=== PATIENT | female | born 1980 | race Caucasian/White ===

== ENCOUNTER 2023-04-27 12:59 | Emergency (ER) | payer SELFPAY ==
[2023-04-27] VITALS (8 sets, daily range): BP systolic 101–133; BP diastolic 60–85; PULSE 120–130; RESP 17–94; TEMP 38.3–39.6; O2SAT 16–99; BMI 26.5
--- NOTE | 2023-04-27 13:14 | ED_ITS ---
Documented by User: SUMAYA Samuel 04/27/23 16:32 HPI - Abdominal Pain General: Chief Complaint: Abdominal Pain Stated Complaint: Abd Pain Time Seen by Provider: 04/27/23 13:07 Source: patient Mode of arrival: ambulatory Limitations: no limitations History of Present Illness: Patient is a nice 42-year-old female presents to ED today with a complaint of significant abdominal pain and fevers. Patient states on Wednesday night she drank alcohol and states on Wednesday she woke up with nausea, vomiting, diarrhea. She thought it was secondary to alcohol effects. She states since that time abdominal pain has started affecting mainly her right lower quadrant and has been persistent. Starting this morning she states pain is severe. She began running fevers yesterday. She is febrile upon arrival at 103.2. She is complaining of abdominal pain that is worse when trying to urinate. She is not having flank pain. Previous abdominal surgeries include a hysterectomy and u nilateral oophorectomy as well as an abdominoplasty. MD elicited complaint: abdominal pain Pertinent past history: none Onset (ago): day(s) Pain Consistency: constant Location: RLQ Severity: severe Quality: stabbing and sharp Radiation: none Migration to: no migration Exacerbating factors: nothing Relieving factors: nothing Associated Symptoms: Reports chills, diarrhea, dysuria, fever(s), nausea and vomiting; Denies hematochezia, hematemesis and melena Related Data: Patient : No Review of Systems Const: Reports: fever(s), chills and body aches; Denies: fatigue or malaise Card: Denies: chest pain Resp: Denies: dyspnea GI: Reports: abdominal pain, nausea, vomiting and diarrhea; Denies: hematemesis, hematochezia or melena : Reports: difficulty voiding and dysuria; Denies: flank pain, urinary urgency, urinary hesitancy, dribbling, vaginal odor, vaginal bleeding, vaginal discharge or pelvic pain Musc: Denies: neck pain, back pain, extremity pain or joint pain Skin/Breast: Denies: rash Neuro: Reports: headache(s); Denies: numbness in extremities, weakness in extremities, sensory changes, difficulty walking or dizziness Physical Exam Const: COMMON NORMALS: average body habitus, patient oriented x3, no limitations, healthy appearing, alert and well nourished GENERAL APPEARANCE: cooperative and ill appearing ORIENTATION/CONSCIOUSNESS: Yes awake, Yes oriented to person, Yes oriented to place and Yes oriented to time Eye: COMMON NORMALS: no scleral icterus Neck/C-Spine: COMMON NORMALS: full ROM, no lymphadenopathy and no meningeal signs Chest: COMMONS NORMALS: normal inspection of the chest and normal palpation of entire chest wall Resp: COMMON NORMALS: normal respiratory effort and clear to auscultation bilaterally AUSCULTATION: clear to auscultation bilaterally Cardio: COMMON NORMALS: regular rhythm RATE: tachycardic RHYTHM: regular rhythm GI: COMMON NORMALS: Normal to inspection, nondistended, normoactive bowel sounds present, Soft to palpation, No hepatosplenomegaly present and no masses INSPECTION: Yes normal to inspection AUSCULTATION: Yes normoactive bowel sounds PALPATION: Yes Soft to palpation, Yes Tenderness to palpation present (GI) Details: RLQ, Yes Guarding due to palpation present (GI), No Rigid due to palpation and Yes No hepatosplenomegaly present : COMMON NORMALS: Yes no CVA tenderness BLADDER/KIDNEY EXAM: Yes no CVA tenderness Back/Pelvis: COMMON NORMALS: no CVA tenderness, thoracic and lumbar spine normal to inspection, no thoracic nor lumbar tenderness and thoraco-lumbar ROM normal Extremity: COMMON NORMALS: normal to inspection GENERAL: Yes normal exam except as noted Neuro: EFRAIN COMA SCALE: document GCS findings Efrain coma scale eye open ing: Spontaneous [place] coma scale verbal response: Orientated Efrain coma scale motor response: Obey commands Efrain coma scale total score: 15 COMMON NORMALS: patient oriented x3 SENSORIUM/ORIENTATION: Yes alert, Yes oriented to person, Yes oriented to place and Yes oriented to time MENINGEAL SIGNS: Yes no meningeal signs Skin: COMMON NORMALS: no rashes or lesions noted GENERAL SKIN EXAM: no rashes or lesions noted Course Vital Signs: Vital signs: Vital Signs Temperature 100.9 F H 04/27/23 15:30 Pulse Rate 124 H 04/27/23 16:52 Respiratory Rate 17 04/27/23 16:52 Blood Pressure 105/61 04/27/23 16:52 Pulse Oximetry 94 04/27/23 16:52 Oxygen Delivery Me thod Room Air 04/27/23 15:30 MDM - Abdominal Pain Medical Decision Making Patient is a 42-year-old female presents to ED today with nausea, vomiting, diarrhea that initially began on Wednesday however these have seemed to improve but now she is complaining of persistent severe right lower quadrant abdominal pain. She feels like pain seems to be worse with urination. She arrives tachycardic and febrile at 103.2. Temperature did improve with antipyretics. Blood work shows a normal white count. She has a normal lactate. Remainder of blood work is unremarkable. Her UA is clear. CT scan showing no acute abdominal or pelvic abnormalities. Dr. Pina commented on a small amount of free fluid in the pelv is that is physiologic but could be related to a ruptured ovarian cyst. I attempted to contact her but she had already left for the day so I spoke to Dr. Hackett who also looked patient CT scan. He also did not find any significant abnormalities. She is status post hysterectomy and right oophorectomy. He agreed that the small amount of free fluid is most likely physiologic probably not an explanation for her pain. He commented on some very mild colitis surrounding her ileocecal region said this was probably too mild to even comment on. Patient and family seems frustrated that I am not able to provide them an explanation for her discomfort. I was able to convince her to get a respiratory panel to possibly explain the fevers. Did initially get CXR which was normal. I will also add blood cultures. Offered admission/observation into the hospital due to pain but patient states she would like to go home. Return ED precautions given. Case discussed with Dr. Leon who agrees with work-up and plan. Lab Data 04/27/23 11:56 04/27/23 11:56 Labs/Radiology: Radiology Impressions Chest X-Ray 04/27/23 13:19 IMPRESSION: No acute findings. Abdomen/Pelvis CT 04/27/23 13:21 IMPRESSION: 1. Normal appendix. 2. No acute abdominal or pelvic abnormalities. 3. Small amount of free fluid in the pelvis. Physiologic amount and could be related to a ruptured ovarian cyst. Laboratory Results WBC 5.3 10^3/uL (4.0-10.0) 04/27/23 11:56 RBC 4.84 10^6/uL (4.1-5.3) 04/27/23 11:56 Hgb 14.3 g/dL (11.5-15.3) 04/27/23 11:56 Hct 42.9 % (37.0-47.0) 04/27/23 11:56 MCV 88.6 fl (81-99) 04/27/23 11:56 MCH 29.5 pg (28.0-34.0) 04/27/23 11:56 MCHC 33.3 g/dL (30.0-36.0) 04/27/23 11:56 RDW 12.5 % (12.1-15.1) 04/27/23 11:56 Plt Count 258 10^3/cmm (130-400) 04/27/23 11:56 MPV 9.7 fL (7.4-10.4) 04/27/23 11:56 Neut % (Auto) 86.9 % 04/27/23 11:56 Lymph % (Auto) 5.5 % 04/27/23 11:56 [place] % (Auto) 5.7 % 04/27/23 11:56 Eos % (Auto) 0.6 % 04/27/23 11:56 Baso % (Auto) 0.9 % 04/27/23 11:56 Neut # (Auto) 4.60 10^3/uL (1.8-7.7) 04/27/23 11:56 Lymph # (Auto) 0.3 10^3/uL (0.8-4.8) L 04/27/23 11:56 [place] # (Auto) 0.3 10^3/uL (0.2-0.9) 04/27/23 11:56 Eos # (Auto) 0.0 10^3/uL (0.0-0.8) 04/27/23 11:56 Baso # (Auto) 0.1 10^3/uL (0.0-0.1) 04/27/23 11:56 Nucleated RBC % (auto) 0 % 04/27/23 11:56 Nucleated RBCs # 0.0 /100WBC 04/27/23 11:56 Sodium 136 mmol/L (136-145) 04/27/23 11:56 Potassium 3.5 mmol/L (3.5-5.1) 04/27/23 11:56 Chloride 99 mmol/L (98-107) 04/27/23 11:56 Carbon Dioxide 21 mmol/L (22-29) L 04/27/23 11:56 Anion Gap 19.5 (5-19) H 04/27/23 11:56 BUN 8 mg/dL (6-20) 04/27/23 11:56 Creatinine 0.8 mg/dL (0.5-0.9) 04/27/23 11:56 GFR Calculation 78.3 mL/min (90-130) L 04/27/23 11:56 Glucose 103 mg/dL (65-115) 04/27/23 11:56 Calculated Osmolality 281 mOsm/kg (285-295) L 04/27/23 11:56 Lactic Acid 1.0 mmol/L (0.5-2.2) 04/27/23 13:28 Calcium 9.3 mg/dL (8.5-10.5) 04/27/23 11:56 Total Bilirubin 0.3 mg/dL (0.15-1.2) 04/27/23 11:56 AST 20 U/L (0-32) 04/27/23 11:56 ALT 26 U/L (0-33) 04/27/23 11:56 Alkaline Phosphatase 60 U/L (35-105) 04/27/23 11:56 Total Protein 7.3 g/dL (6.6-8.7) 04/27/23 11:56 Albumin 4.3 g/dL (3.5-5.2) 04/27/23 11:56 Globulin 3.0 g/dL (1.3-4.6) 04/27/23 11:56 Lipase 23 U/L (13-60) 04/27/23 11:56 HCG, Qual Negative (Negative) 04/27/23 11:56 Urine Color Straw (Yellow) 04/27/23 13:37 Urine Appearance Clear (CLEAR) 04/27/23 13:37 Urine pH 8 (5-7) H 04/27/23 13:37 Ur Specific [place] 1.010 (1.005-1.030) 04/27/23 13:37 Urine Protein Neg (Negative) 04/27/23 13:37 Urine Glucose (UA) Norm (Normal) 04/27/23 13:37 Urine Ketones Negative (Negative) 04/27/23 13:37 Urine Blood Neg (Negative) 04/27/23 13:37 Urine Nitrate Negative (Negative) 04/27/23 13:37 Urine Bilirubin Neg (Negative) 04/27/23 13:37 Prot Sulfosalicylic Acd Negative (Negative) 04/27/23 13:37 Urine Urobilinogen Norm mg/dL (Negative) 04/27/23 13:37 Ur Leukocyte Esterase Negative (Negative) 04/27/23 13:37 Nasal Influ A H1 2009 PCR Not detected (NOT DETECT) 04/27/23 16:23 Urine Opiates Screen Positive ng/mL (Negative) H 04/27/23 16:07 Ur Barbiturates Screen Negative ng/mL (Negative) 04/27/23 16:07 Ur Phencyclidine Scrn Negative ng/mL (Negative) 04/27/23 16:07 Ur Amphetamines Screen Negative ng/mL (Negative) 04/27/23 16:07 U Benzodiazepines Scrn Negative ng/mL (Negative) 04/27/23 16:07 Urine Cocaine Screen Negative ng/mL (Negative) 04/27/23 16:07 U Marijuana (THC) Screen Negative ng/mL (Negative) 04/27/23 16:07 Adenovirus (PCR) Not detected (NOT DETECT) 04/27/23 16:23 C. pneumoniae DNA (PCR) Not detected (NOT DETECT) 04/27/23 16:23 Coronavirus 229E (PCR) Not detected (NOT DETECT) 04/27/23 16:23 Human Metapneumovir PCR Not detected (NOT DETECT) 04/27/23 16:23 Influenza A (H1) PCR Not detected (NOT DETECT) 04/27/23 16:23 Influenza A (H3) PCR Not detected (NOT DETECT) 04/27/23 16:23 Influenza Type A (PCR) Not detected (NOT DETECT) 04/27/23 16:23 Influenza Type B (PCR) Not detected (NOT DETECT) 04/27/23 16:23 M. pneumoniae (PCR) Not detected (NOT DETECT) 04/27/23 16:23 Parainfluenza 1 (PCR) Not detected (NOT DETECT) 04/27/23 16:23 Parainfluenza 2 (PCR) Not detected (NOT DETECT) 04/27/23 16:23 Parainfluenza 3 (PCR) Not detected (NOT DETECT) 04/27/23 16:23 Parainfluenza 4 (PCR) Not detected (NOT DETECT) 04/27/23 16:23 RSV Type A (PCR) Not detected (NOT DETECT) 04/27/23 16:23 RSV Type B (PCR) Not detected (NOT DETECT) 04/27/23 16:23 Entero/Rhino (PCR) Not detected (NOT DETECT) 04/27/23 16:23 SARS-CoV-2 (PCR) Detected (NOT DETECT) A 04/27/23 16:23 Discharge Plan Discharge Patient Disposition: Home Clinical Impression: Right lower quadrant abdominal pain of unknown etiology Condition: Stable Prescriptions: New hydrocodone-acetaminophen 5-325 mg tablet 1 tab PO Q6H PRN (Reason: pain) Qty: 14 0RF ondansetron 4 mg tablet,disintegrating 4 mg PO Q8H PRN (Reason: nausea and vomiting) Qty: 14 0RF Discharge Orders: Discharge ED (Routine); Ordered 04/27/23 Ordered By: Kailee Ramon Referrals: Lenora Pond TEMPLATE WORKER [Primary Care Provider] - Patient Instructions: Abdominal Pain (ED), Opioid Safety, Pain Management Activity Restrictions/Additional Instructions: As we discussed unfortunately your emergency department work-up here today did not yield an obvious reason for your right lower abdominal pain. As we discussed we have offered you admission into the hospital for further treatment/work-up but you have declined. At this time I will send you home with pain and nausea medications you may use at home as needed. As we discussed I would like you to do a bland liquid diet over the next 24 to 48 hours and slowly advance as tolerated. You may take [id number] Tylenol/Ibuprofen as needed for fevers and body aches. Need to return to the emergency department for worsening or uncontrollable abdominal pain, repetitive episodes of vomiting or diarrhea, fevers that do not improve with antipyretic medication, generally feeling worse or unwell, or any other concerns you may have. I hope you begin to feel better soon. Coding Level of Care Code ED Weekday Babysitter for Moy Fwd Documented by User: Delfin Leon DO 08/03/23 06:35 HPI - Abdominal Pain General: Chief Complaint: Abdominal Pain Stated Complaint: Abd Pain Time Seen by Provider: 04/27/23 13:07 Physical Exam Neuro: EFRAIN COMA SCALE: document GCS findings E[place] coma scale total score: 15 Course Vital Signs: Vital signs: Vital Signs Temperature 100.9 F H 04/27/23 15:30 Pulse Rate 124 H 04/27/23 16:52 Respiratory Rate 17 04/27/23 16:52 Blood Pressure 105/61 04/27/23 16:52 Pulse Oximetry 94 04/27/23 16:52 Oxygen Delivery Me thod Room Air 04/27/23 15:30 MDM - Abdominal Pain Medical Decision Making Patient is a 42-year-old female presents to ED today with nausea, vomiting, diarrhea that initially began on Wednesday however these have seemed to improve but now she is complaining of persistent severe right lower quadrant abdominal pain. She feels like pain seems to be worse with urination. She arrives tachycardic and febrile at 103.2. Temperature did improve with antipyretics. Blood work shows a normal white count. She has a normal lactate. Remainder of blood work is unremarkable. Her UA is clear. CT scan showing no acute abdominal or pelvic abnormalities. Dr. Pina commented on a small amount of free fluid in the pelvis that is physiologic but could be related to a ruptured ovarian cyst. I attempted to contact her but she had already left for the day so I spoke to Dr. Hackett who also looked patient CT scan. He also did not find any significant abnormalities. She is status post hysterectomy and right oophorectomy. He agr eed that the small amount of free fluid is most likely physiologic probably not an explanation for her pain. He commented on some very mild colitis surrounding her ileocecal region said this was probably too mild to even comment on. Patient and family seems frustrated that I am not able to provide them an explanation for her discomfort. I was able to convince her to get a respiratory panel to possibly explain the fevers. Did initially get CXR which was normal. I will also add blood cultures. Offered admission/observation into the hospital due to pain but patient states she would like to go home. Return ED precautions given. Case discussed with Dr. Leon who agrees with work-up and plan. Chart reviewed and patient discussed with midlevel. Agree with assessment and plan. When I went to sign off the chart noted in reviewing the labs that the COVID was positive. Discussed with Kailee Ramon who is seen the patient. We will have nursing staff contact the patient. There is a nurses note that the positive was recognized and they made an attempt to contact the patient but the re was no answer. Staff will try again to contact patient and notify her of the positive result Medical Records I reviewed the patient's medical records. Lab Data I reviewed the patient's lab results. 04/27/23 11:56 04/27/23 11:56 Labs/Radiology: Radiology Impressions Chest X-Ray 04/27/23 13:19 IMPRESSION: No acute findings. Abdomen/Pelvis CT 04/27/23 13:21 IMPRESSION: 1. Normal appendix. 2. No acute abdominal or pelvic abnormalities. 3. Small amount of free fluid in the pelvis. Physiologic amount and could be related to a ruptured ovarian cyst. Laboratory Results WBC 5.3 10^3/uL (4.0-10.0) 04/27/23 11:56 RBC 4.84 10^6/uL (4.1-5.3) 04/27/23 11:56 Hgb 14.3 g/dL (11.5-15.3) 04/27/23 11:56 Hct 42.9 % (37.0-47.0) 04/27/23 11:56 MCV 88.6 fl (81-99) 04/27/23 11:56 MCH 29.5 pg (28.0-34.0) 04/27/23 11:56 MCHC 33.3 g/dL (30.0-36.0) 04/27/23 11:56 RDW 12.5 % (12.1-15.1) 04/27/23 11:56 Plt Count 258 10^3/cmm (130-400) 04/27/23 11:56 MPV 9.7 fL (7.4-10.4) 04/27/23 11:56 Neut % (Auto) 86.9 % 04/27/23 11:56 Lymph % (Auto) 5.5 % 04/27/23 11:56 [place] % (Auto) 5.7 % 04/27/23 11:56 Eos % (Auto) 0.6 % 04/27/23 11:56 Baso % (Auto) 0.9 % 04/27/23 11:56 Neut # (Auto) 4.60 10^3/uL (1.8-7.7) 04/27/23 11:56 Lymph # (Auto) 0.3 10^3/uL (0.8-4.8) L 04/27/23 11:56 [place] # (Auto) 0.3 10^3/uL (0.2-0.9) 04/27/23 11:56 Eos # (Auto) 0.0 10^3/uL (0.0-0.8) 04/27/23 11:56 Baso # (Auto) 0.1 10^3/uL (0.0-0.1) 04/27/23 11:56 Nucleated RBC % (auto) 0 % 04/27/23 11:56 Nucleated RBCs # 0.0 /100WBC 04/27/23 11:56 Sodium 136 mmol/L (136-145) 04/27/23 11:56 Potassium 3.5 mmol/L (3.5-5.1) 04/27/23 11:56 Chloride 99 mmol/L (98-107) 04/27/23 11:56 Carbon Dioxide 21 mmol/L (22-29) L 04/27/23 11:56 Anion Gap 19.5 (5-19) H 04/27/23 11:56 BUN 8 mg/dL (6-20) 04/27/23 11:56 Creatinine 0.8 mg/dL (0.5-0.9) 04/27/23 11:56 GFR Calculation 78.3 mL/min (90-130) L 04/27/23 11:56 Glucose 103 mg/dL (65-115) 04/27/23 11:56 Calculated Osmolality 281 mOsm/kg (285-295) L 04/27/23 11:56 Lactic Acid 1.0 mmol/L (0.5-2.2) 04/27/23 13:28 Calcium 9.3 mg/dL (8.5-10.5) 04/27/23 11:56 Total Bilirubin 0.3 mg/dL (0.15-1.2) 04/27/23 11:56 AST 20 U/L (0-32) 04/27/23 11:56 ALT 26 U/L (0-33) 04/27/23 11:56 Alkaline Phosphatase 60 U/L (35-105) 04/27/23 11:56 Total Protein 7.3 g/dL (6.6-8.7) 04/27/23 11:56 Albumin 4.3 g/dL (3.5-5.2) 04/27/23 11:56 Globulin 3.0 g/dL (1.3-4.6) 04/27/23 11:56 Lipase 23 U/L (13-60) 04/27/23 11:56 HCG, Qual Negative (Negative) 04/27/23 11:56 Urine Color Straw (Yellow) 04/27/23 13:37 Urine Appearance Clear (CLEAR) 04/27/23 13:37 Urine pH 8 (5-7) H 04/27/23 13:37 Ur Specific [place] 1.010 (1.005-1.030) 04/27/23 13:37 Urine Protein Neg (Negative) 04/27/23 13:37 Urine Glucose (UA) Norm (Normal) 04/27/23 13:37 Urine Ketones Negative (Negative) 04/27/23 13:37 Urine Blood Neg (Negative) 04/27/23 13:37 Urine Nitrate Negative (Negative) 04/27/23 13:37 Urine Bilirubin Neg (Negative) 04/27/23 13:37 Prot Sulfosalicylic Acd Negative (Negative) 04/27/23 13:37 Urine Urobilinogen Norm mg/dL (Negative) 04/27/23 13:37 Ur Leukocyte Esterase Negative (Negative) 04/27/23 13:37 Nasal Influ A H1 2008 PCR Not detected (NOT DETECT) 04/27/23 16:23 Urine Opiates Screen Positive ng/mL (Negative) H 04/27/23 16:07 Ur Barbiturates Screen Negative ng/mL (Negative) 04/27/23 16:07 Ur Phencyclidine Scrn Negative ng/mL (Negative) 04/27/23 16:07 Ur Amphetamines Screen Negative ng/mL (Negative) 04/27/23 16:07 U Benzodiazepines Scrn Negative ng/mL (Negative) 04/27/23 16:07 Urine Cocaine Screen Negative ng/mL (Negative) 04/27/23 16:07 U Marijuana (THC) Screen Negative ng/mL (Negative) 04/27/23 16:07 Adenovirus (PCR) Not detected (NOT DETECT) 04/27/23 16:23 C. pneumoniae DNA (PCR) Not detected (NOT DETECT) 04/27/23 16:23 Coronavirus 229E (PCR) Not detected (NOT DETECT) 04/27/23 16:23 Human Metapneumovir PCR Not detected (NOT DETECT) 04/27/23 16:23 Influenza A (H1) PCR Not detected (NOT DETECT) 04/27/23 16:23 Influenza A (H3) PCR Not detected (NOT DETECT) 04/27/23 16:23 Influenza Type A (PCR) Not detected (NOT DETECT) 04/27/23 16:23 Influenza Type B (PCR) Not detected (NOT DETECT) 04/27/23 16:23 M. pneumoniae (PCR) Not detected (NOT DETECT) 04/27/23 16:23 Parainfluenza 1 (PCR) Not detected (NOT DETECT) 04/27/23 16:23 Parainfluenza 2 (PCR) Not detected (NOT DETECT) 04/27/23 16:23 Parainfluenza 3 (PCR) Not detected (NOT DETECT) 04/27/23 16:23 Parainfluenza 4 (PCR) Not detected (NOT DETECT) 04/27/23 16:23 RSV Type A (PCR) Not detected (NOT DETECT) 04/27/23 16:23 RSV Type B (PCR) Not detected (NOT DETECT) 04/27/23 16:23 Entero/Rhino (PCR) Not detected (NOT DETECT) 04/27/23 16:23 SARS-CoV-2 (PCR) Detected (NOT DETECT) A 04/27/23 16:23 Discharge Plan Discharge Patient Disposition: Home Clinical Impression: Right lower quadrant abdominal pain of unknown etiology Condition: Stable Prescriptions: New hydrocodone-acetaminophen 5-325 mg tablet 1 tab PO Q6H PRN (Reason: pain) Qty: 14 0RF ondansetron 4 mg tablet,disintegrating 4 mg PO Q8H PRN (Reason: nausea and vomiting) Qty: 14 0RF Discharge Orders: Discharge ED (Routine); Ordered 04/27/23 Ordered By: Kailee Ramon Referrals: Lenora Pond TEMPLATE WORKER [Primary Care Provider] - Patient Instructions: Abdominal Pain (ED), Opioid Safety, Pain Management Activity Restrictions/Additional Instructions: As we discussed unfortunately your emergency department work-up here today did not yield an obvious reason for your right lower abdominal pain. As we discussed we have offered you admission into the hospital for further treatment/work-up but you have declined. At this time I will send you home with pain and nausea medications you may use at home as needed. As we discussed I would like you to do a bland liquid diet over the next 24 to 48 hours and slowly advance as tolerated. You may take [id number] Tylenol/Ibuprofen as needed for fevers and body aches. Need to return to the emergency department for worsening or uncontrollable abdominal pain, repetitive episodes of vomiting or diarrhea, fevers that do not improve with antipyretic medication, generally feeling worse or unwell, or any other concerns you may have. I hope you begin to feel better soon. Coding Level of Care Code ED Weekday Babysitter for Moy Villatoro
--- NOTE | 2023-04-27 13:19 | XRR_ITS ---
PROCEDURE INFORMATION: Exam: XR Chest Exam date and time: 04/27/2023 1:23 PM Age: 42 years old Clinical indication: Fever TECHNIQUE: Imaging protocol: Radiologic exam of the chest. Views: 1 view. COMPARISON: No relevant prior studies available. FINDINGS: Lungs: Unremarkable. No consolidation. Pleural spaces: Unremarkable. No pleural effusion. No pneumothorax. Heart/Mediastinum: Unremarkable. No cardiomegaly. Bones/joints: Unremarkable. XR/XR chest 1V portable [id number] IMPRESSION: No acute findings.
--- NOTE | 2023-04-27 13:21 | CT_ITS ---
WS: [id number] CT ABDOMEN AND PELVIS WITH CONTRAST HISTORY: R lower abdominal pain; 103.2 fever TECHNIQUE: Imaging performed of the abdomen and pelvis with IV contrast. Single phase imaging of the abdomen. Coronal and sagittal reformats are submitted. All CT scans at [facility] use at [address] one of these dose optimization techniques: automated exposure control; mA and/or kV adjustment per patient size (includes targeted exams where dose is matched to clinical indication); or iterative re construction. IV CONTRAST: Omnipaque 350; 100 mL IV. Oral contrast: No DLP: 649.13 mGy.cm COMPARISON: None available. Lower thorax: Lung bases are clear. Heart is normal size. No hiatal hernia. Liver/biliary system: Normal size with no intrahepatic dilatation. Gallbladder: Normal. No gallstones or wall thickening. No pericholecystic fluid. Pancreas: Normal size pancreas and pancreatic duct. No adjacent inflammation. Spleen: Normal size spleen. No mass or infarct. Adrenal glands: Normal. Right kidney: Normal. Left kidney: Normal. Aorta: Normal. Lymphadenopathy: None. Free fluid: None. GI tract: No obstruction. Normal appendix. Abdominal wall: Unremarkable abdominal wall. No hernia. Pelvis: Very small amount of free fluid in the pelvis is probably physiologic. Bones: Unremarkable. CT/CT abdomen pelvis w con* [id number] IMPRESSION: 1. Normal appendix. 2. No acute abdominal or pelvic abnormalities. 3. Small amount of free fluid in the pelvis. Physiologic amount and could be r elated to a ruptured ovarian cyst.
[2023-04-27 13:30] LABS: Basophils # 0.1 10^3/uL (0.0-0.1); Basophils % 0.9 %; Eosinophils % 0.6 %; Hematocrit 42.9 % (37.0-47.0); Hemoglobin 14.3 g/dL (11.5-15.3); Lymphocytes # 0.3 10^3/uL (0.8-4.8); Lymphocytes % 5.5 %; Mean Corpuscular HGB Conc 33.3 g/dL (30.0-36.0); Mean Corpuscular Hemoglobin 29.5 pg (28.0-34.0); Mean Corpuscular Volume 88.6 fl (81-99); Mean Platelet Volume 9.7 fL (7.4-10.4); Monocytes # 0.3 10^3/uL (0.2-0.9); Monocytes % 5.7 %; Neutrophils % 86.9 %; Nucleated Red Blood Cells % 0 %; Platelet Count 258 10^3/cmm (130-400); Red Blood Count 4.84 10^6/uL (4.1-5.3); Red Cell Distribution Width 12.5 % (12.1-15.1); White Blood Count 5.3 10^3/uL (4.0-10.0)
[2023-04-27 13:42] LABS: HCG, Serum Qual Negative (Negative)
[2023-04-27 13:48] LABS: Alanine Aminotransferase 26 U/L (0-33); Albumin Level 4.3 g/dL (3.5-5.2); Alkaline Phosphatase 60 U/L (35-105); Aspartate Amino Transferase 20 U/L (0-32); Blood Urea Nitrogen 8 mg/dL (6-20); Calcium 9.3 mg/dL (8.5-10.5); Carbon Dioxide 21 mmol/L (22-29); Chloride 99 mmol/L (98-107); Glomerular Filtration Rate 78.3 mL/min (90-130); Glucose 103 mg/dL (65-115); Lipase 23 U/L (13-60); Osmolality Calculated 281 mOsm/kg (285-295); Sodium 136 mmol/L (136-145); Total Bilirubin 0.3 mg/dL (0.15-1.2); Total Protein 7.3 g/dL (6.6-8.7)
[2023-04-27 13:49] LABS: Anion Gap 19.5 (5-19); Potassium 3.5 mmol/L (3.5-5.1)
[2023-04-27 14:05] LABS: Add Urine Microscopic? NO; Charge for UA Resulting for Rev
[2023-04-27] MEDS: acetaminophen 500 mg Tablet 1000 MG PO (14:09)
[2023-04-27] MEDS: sodium chloride 0.9% 1,000 ML 999 ML IV (14:11)
[2023-04-27] MEDS: HYDROmorphone 1 mg/mL INJ 1 mL IVP (14:13)
[2023-04-27 14:15] LABS: Bilirubin Urine Neg (Negative); Blood Urine Neg (Negative); Glucose Urine UA Norm (Normal); Ketones Urine Negative (Negative); Leukocyte Esterase Urine Negative (Negative); Nitrate Urine Negative (Negative); Protein Urine Neg (Negative); Sulfosalicylic Acid Urine Negative (Negative); Urine Appearance Clear (CLEAR); Urine Color Straw (Yellow); Urobilinogen Urine Norm (Negative); pH Urine 8 (5-7)
[2023-04-27] MEDS: iohexol 350 mg/mL 500 mL Btl (per mL) IV (14:47)
[2023-04-27] MEDS: ketorolac 30 mg/mL INJ IVP (16:09)
[2023-04-27 16:31] LABS: Amphetamines Screen Urine Negative (Negative); Barbiturates Screen Urine Negative (Negative); Benzodiazepines Screen Urine Negative (Negative); Cocaine Screen Urine Negative (Negative); Opiate Screen Urine Positive (Negative); PCP Screen Urine Negative (Negative); THC Screen Urine Negative (Negative)
[2023-04-27 18:10] LABS: Adenovirus Not Detected (NOT DETECT); Chlamydia Pneumoniae Not Detected (NOT DETECT); Coronavirus 229E,HKU1,NL63,OC4 Not Detected (NOT DETECT); Human Metapneumovirus Not Detected (NOT DETECT); Human Rhinovirus/Enterovirus Not Detected (NOT DETECT); Influenza A Not Detected (NOT DETECT); Influenza A H1 Not Detected (NOT DETECT); Influenza A H1-2009 Not Detected (NOT DETECT); Influenza A H3 Not Detected (NOT DETECT); Influenza B Not Detected (NOT DETECT); Mycoplasma Pneumoniae Not Detected (NOT DETECT); Parainfluenza Virus Type 1 Not Detected (NOT DETECT); Parainfluenza Virus Type 2 Not Detected (NOT DETECT); Parainfluenza Virus Type 3 Not Detected (NOT DETECT); Parainfluenza Virus Type 4 Not Detected (NOT DETECT); Respiratory Syncytial Virus A Not Detected (NOT DETECT); Respiratory Syncytial Virus B Not Detected (NOT DETECT)
[2023-04-27 18:18] LABS: SARS-COV-2 Detected (NOT DETECT)
--- NOTE | 2023-04-27 18:25 | PC.NURSE ---
contacted patient after discharge via phone, to notify of positive covid results, and to quarantine per safety guidelines
== END 2023-04-27 17:05 | disposition home or self-care (01) ==
PROVIDERS: Emergency Provider Physician Assistant; PCP Nurse Practitioner
DX: U07.1 COVID-19 (principal); R10.31 Right lower quadrant pain
CPT/HCPCS: 36415; 71045; 74177; 80053; 80306; 81003; 83605; 83690; 84703; 85025; 87040; 87486; 87581; 87633; 96361; 96374; 96375; 99285; J1170; J1885; J7030; Q9967